=== PATIENT | male | born 1980 | race Two or more races ===

== ENCOUNTER 2019-04-11 07:30 | Day surgery (SDC) | payer OTHER ==
[2019-04-11] MEDS: LACTATED RINGER'S 1,000 ML IV (08:57)
[2019-04-11] MEDS: ACETAMINOPHEN 500 MG TAB PO (08:59)
[2019-04-11] MEDS ORDERED: HYDROmorphONE 1 MG/5 ML IV SYRINGE IV ×3 (11:00)
[2019-04-11] MEDS ORDERED: ONDANSETRON 4 MG INJ IV (11:00)
[2019-04-11] MEDS ORDERED: OXYCODONE/ACETAMINOPHEN (5/325) TAB PO ×2 (11:00)
[2019-04-11] MEDS ORDERED: DIPHENHYDRAMINE 50 MG INJ IV (11:00)
[2019-04-11] MEDS ORDERED: morphine 2 MG INJ IV ×2 (11:00)
[2019-04-11] MEDS ORDERED: MEPERIDINE 25 MG INJ IV (11:00)
[2019-04-11] MEDS ORDERED: FENTAnyl 50 MCG/ML VIAL IV ×2 (11:00)
[2019-04-11] MEDS ORDERED: ALBUTEROL 0.083% (NEB) 2.5 MG/3 ML AMP HHN (11:00)
[2019-04-11] MEDS ORDERED: LABETALOL HCL 20MG INJ IV (11:00)
[2019-04-11] MEDS: LIDOCAINE 1%/EPI 30 ML INJ (11:24)
[2019-04-11] MEDS ORDERED: KETOROLAC 15 MG INJ (11:42)
[2019-04-11] MEDS: KETOROLAC 15 MG INJ IV (11:46)
== END 2019-04-11 12:21 | disposition home or self-care (01) ==
LOC: SDS 07:30
DX: L72.11 Pilar cyst (principal)
CPT/HCPCS: 11422; 88304